=== PATIENT | male | born 1980 | race Caucasian/White ===

== ENCOUNTER 2017-03-10 22:51 | Emergency (ER) | payer MEDICAID | END 2017-03-11 01:10 | disposition home or self-care (01) | LOC: D.ER 22:51 | DX: R51 Headache (principal); F90.9 Attention-deficit hyperactivity disorder, unspecified type; F41.9 Anxiety disorder, unspecified ==

== ENCOUNTER 2018-01-22 18:33 | Emergency (ER) | payer MEDICAID ==
[2018-01-22 19:07] LABS: APPEARANCE CLEAR (CLEAR); BILIRUBIN NEGATIVE (NEGATIVE); COLOR YELLOW (YELLOW); GLUCOSE NEGATIVE (NEGATIVE); KETONE NEGATIVE (NEGATIVE); NITRITE NEGATIVE (NEGATIVE); PROTEIN NEGATIVE (NEGATIVE); SPECIFIC GRAVITY 1.015 (1.005-1.020); UROBILINOGEN NORMAL (NORMAL)
[2018-01-22 19:08] LABS: RED CELLS - URINE 0-5 /hpf (0-5); WHITE CELLS - URINE 0-5 /hpf (0-5)
[2018-01-22 19:09] LABS: BACTERIA FEW /hpf (NONE SEEN)
== END 2018-01-22 22:13 | disposition home or self-care (01) ==
LOC: D.ER 18:33
PROVIDERS: Emergency Medicine
DX: S30.0XXA Contusion of lower back and pelvis, initial encounter (principal); S70.01XA Contusion of right hip, initial encounter; S00.03XA Contusion of scalp, initial encounter; W11.XXXA Fall on and from ladder, initial encounter; Y93.89 Activity, other specified; Y92.019 Unspecified place in single-family (private) house as the place of occurrence of the external cause; F90.9 Attention-deficit hyperactivity disorder, unspecified type

== ENCOUNTER → 2021-03-21 15:03 | Outpatient (CLI) | payer MEDICAID | END | disposition home or self-care (01) | LOC: D.LAB 15:03 | PROVIDERS: ATTEND Internal Medicine Pulmonary Disease | DX: Z11.52 Encounter for screening for COVID-19 (principal) ==

== ENCOUNTER → 2021-03-27 10:37 | Outpatient (CLI) | payer MEDICAID ==
[2021-03-27 12:11] LABS: BASOPHILS 1.2 % (0-2); HEMATOCRIT 46.7 % (42.0-54.0); HEMOGLOBIN 16.1 g/dL (13.5-17.5); LYMPHOCYTES 38.5 % (15-50); MCH 29.4 pg (26.0-34.0); MCHC 34.6 g/dL (31.0-37.0); MEAN PLATELET VOLUME 6.8 fL (7.4-10.4); MONOCYTES 6.3 % (2-11); RBC 5.49 10x6/uL (4.20-6.10); RDW 13.1 % (11.5-14.5); WBC 4.4 10x3/uL (4.8-10.8)
[2021-03-27 12:13] LABS: PLATELET COUNT 222 10x3/uL (130-400)
== END | disposition home or self-care (01) ==
LOC: D.LAB 08:00 → D.RT 10:00 → D.LAB 10:37
PROVIDERS: ATTEND Internal Medicine Pulmonary Disease
DX: R06.09 Other forms of dyspnea (principal); J45.909 Unspecified asthma, uncomplicated